=== PATIENT | female | born 1995 | race Caucasian/White ===

== ENCOUNTER 2016-08-23 19:42 | Emergency (ER) | payer OTHER ==
[~2016-08-23] VITALS: Ht 160 cm; Wt 74.5 kg
[~2016-08-23 19:42] MED LIST: ONDA8TAB10 PO
[2016-08-23 20:03] VITALS: BP 113/67; PULSE 88; RESP 16; O2SAT 95
--- NOTE | 2016-08-23 21:40 | ED.REPORT ---
HPI-General Illness Date of Service Aug 23, 2016 ED Provider: Eleazar Bates MD A 20 year old female with no pertinent medical history presents to the ED complaining of a cough that began approximately five days ago. She noticed that her mucus was pink today and became concerned. The pt has also been feeling slightly short of breath with chest pain when she coughs. She has been exposed to pneumonia recently, and has not been vaccinated for influenza this year. Nursing Notes Stated Complaint: COUGH,CHEST PAIN Chief Complaint: FLU/Cold Symptoms Nursing Notes Reviewed: Yes Allergies: Coded Allergies: Sulfa (Sulfonamide Antibiotics) (Unverified Allergy, Intermediate, Hives, 08/23/16) Scheduled Azithromycin (Zithromax) 250 Mg Tablet 250 MG PO DAILY Scheduled PRN Ondansetron ODT (Ondansetron ODT) 8 Mg Tab.rapdis 8 MG PO Q4H PRN PRN For Nausea General Time Seen by MD: 21:40 Chief Complaint Cough Hx Obtained From: Patient Arrived By: Walk-in Sudden in Onset?: No Onset Occurred: 5 days ago Symptom Duration: Since onset Recent Healthcare: No recent doctor visit, No recent hospitalization Similar Sx Previous: No Past Medical History Past Medical History Past Surgical History Orthopedic Smoking History Never Smoker Ambulatory Status Independent Review of Systems Full Review of Systems Respiratory: Reports: Prod cough, bloody, Shortness of breath Cardiovascular: Reports: Chest pain GI: Denies: Abdominal pain Musculoskeletal: Denies: Back pain Skin: Denies Rash Complete sys rev & neg: except as marked. Physical Exam Vital Signs Vital Signs Date Time Temp Pulse Resp B/P Pulse Ox O2 Delivery O2 Flow Rate FiO2 08/23/16 23:29 102 18 120/62 94 Room Air 08/23/16 22:37 90 20 98 Room Air 08/23/16 20:03 36.8 88 16 113/67 95 Room Air Initial VS: Reviewed General/Constitutional: Awake, Alert Head / Eyes: Atraumatic, Normocephalic, PERRL, EOMI ENT: Atraumatic, Airway patent, Mucous membranes moist Neck: Atraumatic, Supple, Full range of motion Respiratory / Chest: Atraumatic, Breath sounds = bilat, No respiratory distress bronchospastic cough mild crackles with end inspiration in lower lobes bilaterally Cardiovascular: Heart rate NL, Regular rhythm, Heart sounds NL Abdomen: Atraumatic, Soft, Non-tender Back: Atraumatic, Full range of motion Upper Extremities Upper Extremity / MS: Atraumatic, Full range of motion Lower Extremity / Pelvis / MS: Atraumatic, Full range of motion Skin: Atraumatic, Color NL, No rash, Warm mild diaphoresis Neurologic: Oriented X3, Speech NL, No motor deficits, No sensory deficits Psychiatric: Affect NL, Mood NL Interpretation & Diagnostics X-Ray Chest Interpretation Chest Xray Interpretation: right lower lobe pneumonia Interpretation / Wet Read by: Radha read ED physician Re-Eval/Medical Decision Med Decision/Clinical Course 20-year-old in good health generally with a remote history of reactive airways disease as a child. She presents now with a cough mildly productive some mildly blood-streaked sputum at a point, and pneumonia on x-ray. Her pulse ox is 93-95% suggesting that she might have positive findings on her film. She is improved after bronchodilator urine is discharged with albuterol for home use. Begun with azithromycin for community acquired pneumonia. Discharged in stable condition. Source of Hx: Old records Time of Eval: 23:00 Patient Status: Condition improved Re-Evaluation/Progress Note: Pt rechecked, whose condition has improved. She is informed of radiology results and diagnosis. The plan for discharge is discussed. The pt understands and agrees with the plan. All questions are addressed at this time. Counseled Regarding: Diagnosis, Lab results, Need for follow-up, When/why to return to ED Discharge & Departure Primary Impression: Community acquired pneumonia Additional Impression: Reactive airway disease that is not asthma Disposition: Home Discharge Condition All VS Reviewed: Yes Condition: Stable Patient Instructions: Community-acquired Pneumonia (ED), Reactive Airways Disease (ED) Additional Instructions: Take azithromycin one tablet daily for four more days. Albuterol two puffs every four hours with spacer for cough. Follow-up with your doctor in the office. Return if any immediate issues with breathing or other new symptoms of concern. Referrals: Layo Hairston MD (PCP) Scribe Attestation Portions of this note were transcribed by Leandro Lyons I, Dr. Bates personally performed the history, physical exam and medical decision-making; I reviewed and confirmed the accuracy of the information in the transcribed note. Signed by: Ty Leahy, 08/23/16 and 23:09. copies to: Layo Hairston MD, Christopher W MD Aug 23, 2016 21:40 LEANDRO LYONS Aug 23, 2016 21:55
[2016-08-23] MEDS ORDERED: Albuterol-Ipratropium 3 mL Inhalation Solution NEB ONE (21:50)
[2016-08-23] MEDS ORDERED: _Albuterol-HFA 60 Puff Inhaler INHALATION PRN (21:50)
[2016-08-23 22:37] VITALS: PULSE 90; RESP 20; O2SAT 98
[2016-08-23] MEDS ORDERED: ZIT250 PO (23:06)
[2016-08-23 23:29] VITALS: BP 120/62; PULSE 102; RESP 18; O2SAT 94
--- NOTE | 2016-08-24 08:50 | DRSVH ---
PROCEDURE: X-RAY CHEST, TWO VIEWS ([id number]) INDICATIONS: cough, mild decrease p02 TECHNIQUE: 2 views of the chest were acquired. COMPARISON: [facility], RG, XR CXR 2V, 08/11/1998, 15:27. FINDINGS: Surgical changes and devices: None. Lungs and pleura: No pleural effusions or pneumothorax. Lungs are clear. Mediastinum: Mediastinal contours are normal. Heart size is normal. Bones and chest wall: No suspicious bony abnormalities. Soft tissues appear unremarkable. IMPRESSION: No definite acute cardiopulmonary process. Dictated by: Adonis Cornelius [facility] Interpreted: Jairo Haro MD on 08/24/2016 at 8:48 Transcribed by: SAMARA on 08/24/2016 at 8:49 Approved by: Jairo Haro M.D. on 08/24/2016 at 10:38
== END 2016-08-23 23:29 | disposition home or self-care (01) ==
LOC: SED 19:42
DX: J18.9 Pneumonia, unspecified organism (principal); J98.9 Respiratory disorder, unspecified; Z88.2 Allergy status to sulfonamides
CPT/HCPCS: 71020; 94664; 99284; J7620